=== PATIENT | female | born 1955 | race Caucasian/White ===

== ENCOUNTER → 2016-10-15 | Outpatient (CLI) | payer MEDICARE, BC ==
--- NOTE | ~2016-10-15 | PUL ---
PATIENT'S NAME: EDIN SAEED [facility] AGE: 61 Y [address] ROOM: [place] [id number] LOCATION: [facility] ADMIT DATE: 10/15/2016 Pulmonary DISCHARGE DATE: FAMILY PHYSICIAN: DECLAN MENDOZA MD ATTENDING PHYSICIAN: DCELAN MENDOZA NAME OF PROCEDURE: Sleep study PROCEDURE DATE: 10/15/16 TECH: TOÑO Perez TEST #: SD# [id number] TECHNICAL PARAMETERS: The patient was studied using International 10/20 measuring system. While the patient was studied, there was continuous monitoring of EEG (8 leads), EOG (2 leads), EKG (3 leads), submental EMG (3 leads), tibial (4 leads), respiratory inductive plethysmography (RIP) for thoracic and abdominal effort, oral and nasal airflow with a thermocouple and pressure transducer, and oximetry. The satellite installation technician also performed visual and auditory observations noting things like body position, patient's status, breath sounds, artifact, snoring level and patient comments. Continuous sound was monitored using a 2-way speaker system and video monitoring was performed using an infrared camera. Review of the entire study was performed epoch by epoch utilizing a single epoch and multiple epoch capability sleep system. MEDICAL HISTORY: The patient is a 61-year-old massively obese woman with a history of persistent daytime sleepiness. She has a prior history of obstructive sleep apnea and is being studied for re-titration of her CPAP. SLEEP STAGE SUMMARY: The patient was studied for 537 minutes of which she slept 381 minutes. She fell asleep in 41 minutes and slept for 71% of the night. Sleep architecture revealed a mild decline in REM sleep and a decline in slow wave sleep. RESPIRATORY SUMMARY: Oxygen saturations ranged from 85-93%. CPAP was initiated at 13 cm and titrated to 17 cm with good control of the respiratory events. EKG SUMMARY: Average heart rate during sleep 68 beats per minute. No significant dysrhythmias were noted. LIMB MOVEMENT SUMMARY: Frequent periodic limb movements were noted throughout the study and persisted after control of the sleep apnea. Limb movement index was 110 events per hour. Limb movement with arousal was normal however the PATIENT'S NAME: EDIN SAEED [facility] AGE: 61 Y [address] ROOM: [place], [place] [id number] LOCATION: [facility] ADMIT DATE: 10/15/2016 Pulmonary DISCHARGE DATE: FAMILY PHYSICIAN: DECLAN MENDOZA MD ATTENDING PHYSICIAN: DECLAN MENDOZA total number of limb movements suggests they may be clinically relevant. IMPRESSION: 1. Severe obstructive sleep apnea responsive to CPAP at 17 cm. 2. Possible periodic limb movement disorder. If symptoms are suggestive I would consider treating them. PLAN: Patient will receive results from the ordering provider. CAL CORDOVA MD /[id number] dtt: 10/20/16 1743 , Cal Cordova. dtd: 10/18/16 1039
== END | disposition disaster alternative care site (69) ==
LOC: GSLP 20:23
DX: G47.33 Obstructive sleep apnea (adult) (pediatric) (principal); G47.19 Other hypersomnia; R06.83 Snoring